=== PATIENT | male | born 2000 | race Caucasian/White ===

== ENCOUNTER 2019-08-03 06:30 | Emergency (ER) | payer OTHER ==
[~2019-08-03] VITALS: Ht 170.2 cm; Wt 50.9 kg
[2019-08-03 06:32] VITALS: BP 129/71
[2019-08-03 08:08] LABS: RAPID INFLUENZA A POSITIVE (Negative); RAPID INFLUENZA B Negative (Negative)
== END 2019-08-03 08:43 | disposition home or self-care (01) ==
LOC: ED 08:30
DX: J10.1 Influenza due to other identified influenza virus with other respiratory manifestations (principal); R21 Rash and other nonspecific skin eruption
CPT/HCPCS: 87400; 99283

== ENCOUNTER 2019-08-06 13:36 | Emergency (ER) | payer OTHER ==
[~2019-08-06] VITALS: Ht 170.2 cm; Wt 50.0 kg
--- NOTE | 2019-08-06 14:34 | NUR ---
pt ambulated to room, changed into gown, resting on gurney, NAD, call light within reach, even and unlabored respirations, denies additional needs at this time. Dr Lora at bedside performing assessment and discussing plan of care with pt. CORDELIA.
[2019-08-06] MEDS ORDERED: KETOROLAC 30 MG/1 ML IM ONE (15:00)
[2019-08-06] MEDS ORDERED: KETOROLAC 30 MG/1 ML ONE (15:03)
--- NOTE | 2019-08-06 15:09 | NUR ---
pt resting in [place] loya, denies additional needs at this time. call light within reach, WCTM.
[2019-08-06 15:23] VITALS: BP 105/66
== END 2019-08-06 15:26 | disposition home or self-care (01) ==
LOC: ED 15:25
DX: J60 Coalworker's pneumoconiosis (principal); B34.9 Viral infection, unspecified; R21 Rash and other nonspecific skin eruption; M54.2 Cervicalgia
CPT/HCPCS: 96372; 99283; J1885

== ENCOUNTER 2020-02-18 06:00 | Emergency (ER) | payer OTHER ==
[~2020-02-18] VITALS: Ht 172.7 cm; Wt 52.5 kg
--- NOTE | 2020-02-18 06:14 | NUR ---
PATIENT PUT INTO A C-COLLAR AND TAKEN BACK TO ROOM 15 IN A WHEELCHAIR.
[2020-02-18] MEDS ORDERED: NEOSPORIN OINT. PKT 1 PACKET ONE (07:03)
--- NOTE | 2020-02-18 07:03 | NUR ---
REPORT TO LEONCIO BURROUGHS.
--- NOTE | 2020-02-18 07:27 | NUR ---
SBAR RECEIVED FROM NOC RN AT PATIENT BEDSIDE FOR TRANSFER OF CARE.
[2020-02-18 07:50] VITALS: BP 99/61
--- NOTE | 2020-02-18 07:52 | NUR ---
PATIENT LYING IN GURNEY, EYES CLOSED, MOTHER AT BEDSIDE, VITAL SIGNS WITHIN NORMAL LIMITS, SIDE RAILS UP X2, CALL LIGHT WITHIN REACH.
--- NOTE | 2020-02-18 08:32 | NUR ---
Patient and mother given discharge instructions and they have confirmed that they understand the instructions, no questions. injection mold technician placed armsling, all patient belongings gathered. Patient ambulatory with steady gait to discharge desk,with mother.
== END 2020-02-18 08:34 ==
LOC: ED 08:15
DX: S16.1XXA Strain of muscle, fascia and tendon at neck level, initial encounter (principal); S53.402A Unspecified sprain of left elbow, initial encounter; V49.49XA Driver injured in collision with other motor vehicles in traffic accident, initial encounter; Y93.89 Activity, other specified; Y92.488 Other paved roadways as the place of occurrence of the external cause; Y99.8 Other external cause status
CPT/HCPCS: 70450; 72125; 99285

== ENCOUNTER 2021-01-05 12:15 | Inpatient (IN) | payer OTHER ==
[~2021-01-05] VITALS: Ht 172.7 cm; Wt 60.0 kg
--- NOTE | 2021-01-05 13:12 | NUR ---
operational trainer note: Pt to room from lobby.
[2021-01-05] MEDS ORDERED: SODIUM CHLORIDE FLUSH 10ML SYR IVF ONE (14:00)
--- NOTE | 2021-01-05 14:24 | NUR ---
PT BLOOD AND URINE TUBED TO LAB AT THIS TIME.
[2021-01-05 14:43] LABS: BASOPHILS % (AUTO) 1 % (0-1); EOSINOPHILS % (AUTO) 4 % (1-7); LYMPHOCYTES % (AUTO) 28 % (22-44); MEAN CORPUSCULAR HEMOGLOBIN 30.6 pg (27.5-34.5); MEAN CORPUSCULAR HGB CONC 34.5 g/dL (33.2-36.2); MEAN PLATELET VOLUME 9.6 fL (7.4-10.4); MONOCYTES % (AUTO) 8 % (2-9); NEUTROPHILS % (AUTO) 59 % (42-75); PLATELET COUNT 150 x10^3/uL (130-400); RED BLOOD COUNT 5.78 x10^6/uL (4.38-5.82); RED CELL DISTRIBUTION WIDTH 13.1 % (9.4-14.8)
[2021-01-05 14:49] LABS: ALBUMIN 4.5 g/dL (3.4-5.0); CALCIUM 9.4 mg/dL (8.5-10.1); CREATININE 1.01 mg/dL (0.7-1.3)
[2021-01-05 14:51] LABS: MICROSCOPIC INDICATED
[2021-01-05 14:54] LABS: ANION GAP 7 mmol/L (5-15); CHLORIDE 104 mmol/L (98-107)
[2021-01-05] MEDS ORDERED: OMNIPAQUE 350 MG/ML, 100ML BOTTLE ONE (15:24)
--- NOTE | 2021-01-05 16:30 | NUR ---
PT VSS AND UPDATED IN EMR. PT HAS CALL LIGHT WITHIN REACH AND DENIES ANY OTHER NEEDS PERTAINING TO THIS VISIT.
--- NOTE | 2021-01-05 17:58 | NUR ---
REPORT OF PT TO LEONCIO LEON. ALL QUESTIONS ANSWERED.
[2021-01-05] MEDS ORDERED: ONDANSETRON 2MG/ML, 2ML IVPush PRN (19:30)
[2021-01-05 20:18] VITALS: BP 119/72
[2021-01-05] MEDS ORDERED: DIPHENHYDRAMINE 50 MG/ML, 1ML IVPush ONE (21:00)
[2021-01-05 21:12] VITALS: BP 119/72
[2021-01-05] MEDS: SODIUM CHLORIDE 0.9% 1,000 ML IV SCH (21:30)
[2021-01-06 02:39] VITALS: BP 113/57
[2021-01-06 04:49] LABS: BASOPHILS % (AUTO) 0 % (0-1); EOSINOPHILS % (AUTO) 2 % (1-7); LYMPHOCYTES % (AUTO) 17 % (22-44); MEAN CORPUSCULAR HEMOGLOBIN 30.6 pg (27.5-34.5); MEAN CORPUSCULAR HGB CONC 34.3 g/dL (33.2-36.2); MEAN PLATELET VOLUME 9.1 fL (7.4-10.4); MONOCYTES % (AUTO) 9 % (2-9); NEUTROPHILS % (AUTO) 72 % (42-75); PLATELET COUNT 153 x10^3/uL (130-400); RED BLOOD COUNT 5.44 x10^6/uL (4.38-5.82); RED CELL DISTRIBUTION WIDTH 12.8 % (9.4-14.8)
[2021-01-06] MEDS: SODIUM CHLORIDE 0.9% 1,000 ML IV SCH ×2 (04:55→15:30)
[2021-01-06] MEDS: morphine SULFATE 10 MG/ML, 1ML IVPush PRN (04:55)
[2021-01-06 04:59] LABS: ANION GAP 5 mmol/L (5-15); CALCIUM 8.8 mg/dL (8.5-10.1); CHLORIDE 110 mmol/L (98-107); CREATININE 0.93 mg/dL (0.7-1.3)
[2021-01-06 07:00] VITALS: BP 105/51
[2021-01-06 13:10] VITALS: BP 112/70
[2021-01-06] MEDS ORDERED: OMNIPAQUE 350 MG/ML, 100ML BOTTLE ONE (19:00)
[2021-01-06 20:22] VITALS: BP 108/63
[2021-01-06] MEDS ORDERED: LORazepam 2 MG/ML, 1ML ONE (22:37)
[2021-01-06] MEDS ORDERED: LORazepam 2 MG/ML, 1ML IVPush ONE (23:00)
[2021-01-07] MEDS: SODIUM CHLORIDE 0.9% 1,000 ML IV SCH ×2 (02:58→17:47)
[2021-01-07 04:46] LABS: BASOPHILS % (AUTO) 0 % (0-1); EOSINOPHILS % (AUTO) 3 % (1-7); LYMPHOCYTES % (AUTO) 26 % (22-44); MEAN CORPUSCULAR HEMOGLOBIN 30.6 pg (27.5-34.5); MEAN CORPUSCULAR HGB CONC 34.7 g/dL (33.2-36.2); MEAN PLATELET VOLUME 8.6 fL (7.4-10.4); MONOCYTES % (AUTO) 10 % (2-9); NEUTROPHILS % (AUTO) 61 % (42-75); PLATELET COUNT 149 x10^3/uL (130-400); RED BLOOD COUNT 5.38 x10^6/uL (4.38-5.82); RED CELL DISTRIBUTION WIDTH 12.7 % (9.4-14.8)
[2021-01-07 05:00] LABS: ANION GAP 4 mmol/L (5-15); CALCIUM 8.4 mg/dL (8.5-10.1); CHLORIDE 106 mmol/L (98-107); CREATININE 0.91 mg/dL (0.7-1.3)
[2021-01-07 08:59] VITALS: BP 123/69
[2021-01-07] MEDS ORDERED: MIDAZOLAM 1 MG/ML, 2ML ONE (11:25)
[2021-01-07] MEDS ORDERED: PROPOFOL 50 ML ONE (11:25)
[2021-01-07] MEDS ORDERED: FENTANYL PF 250 MCG/5ML ONE ×2 (11:26→15:12)
[2021-01-07] MEDS ORDERED: hydrALAzine 20 MG/ML, 1ML IV PRN (14:30)
[2021-01-07] MEDS ORDERED: OXYcodone 5 MG/5 ML ORAL.SOL UDC PO PRN (14:30)
[2021-01-07] MEDS ORDERED: LORazepam 2 MG/ML, 1ML IVPush PRN ×2 (14:30→18:30)
[2021-01-07] MEDS ORDERED: LABETALOL 5MG/ML, 20ML IV PRN (14:30)
[2021-01-07] MEDS ORDERED: ONDANSETRON 2MG/ML, 2ML IVPush PRN (14:30)
[2021-01-07] MEDS ORDERED: HYDROmorphone 1 MG/ML, 1ML INJ IVPush PRN (14:30)
[2021-01-07] MEDS ORDERED: MEPERIDINE/PF 25MG/0.5ML IVPush PRN (14:30)
[2021-01-07] MEDS ORDERED: METHOCARBAMOL 1,000 MG in DEXTROSE 5% 100 ML IV PRN (14:30)
[2021-01-07] MEDS ORDERED: ACETAMINOPHEN 325 MG TABLET PO PRN (14:30)
[2021-01-07] MEDS ORDERED: PROMETHAZINE 25 MG/ML, 1ML IVPush PRN (14:30)
[2021-01-07] MEDS ORDERED: FENTANYL PF 100 MCG/2ML ONE (16:03)
[2021-01-07] MEDS ORDERED: OXYcodone 5 MG/5 ML ORAL.SOL UDC ONE (16:04)
[2021-01-07] MEDS: FENTANYL PF 100 MCG/2ML IV PRN ×3 (16:06→16:32)
[2021-01-07] MEDS ORDERED: MEPERIDINE/PF 25MG/ML,1ML ONE (16:15)
[2021-01-07] MEDS: morphine SULFATE 10 MG/ML, 1ML IVPush PRN (17:42)
[2021-01-07] MEDS ORDERED: KETOROLAC 30 MG/1 ML IVPush ONE (18:30)
[2021-01-07 20:20] VITALS: BP 119/72
[2021-01-08] MEDS ORDERED: LORazepam 2 MG/ML, 1ML IVPush ONE
[2021-01-08] MEDS: SODIUM CHLORIDE 0.9% 1,000 ML IV SCH
[2021-01-08 00:02] VITALS: BP 110/56
[2021-01-08 04:26] VITALS: BP 95/61
[2021-01-08 07:46] VITALS: BP 101/55
[2021-01-08 13:52] VITALS: BP 109/72
[2021-01-08] MEDS ORDERED: DOCUSATE 100 MG CAPSULE ONE (14:32)
[2021-01-08] MEDS ORDERED: DOCU-131 PO (16:37)
[2021-01-08] MEDS ORDERED: DOCUSATE 100 MG CAPSULE PO SCH (21:00)
== END 2021-01-08 17:47 | disposition home or self-care (01) | DRG 358 ==
LOC: ED 14:19 → EDIP 16:09 → 4NE 18:15
PROVIDERS: ADMIT Hospitalist; ATTEND Hospitalist
PROC: 0DJW4ZZ Inspection of Peritoneum, Percutaneous Endoscopic Approach (ICD-10-PCS; principal; 2021-01-07 13:45)
DX: K56.600 Partial intestinal obstruction, unspecified as to cause (principal); K56.1 Intussusception; F12.10 Cannabis abuse, uncomplicated; Z20.822 Contact with and (suspected) exposure to COVID-19
CPT/HCPCS: 36415; 74177; 80048; 81001; 82040; 85025; 87635; 96374; G0378; J1885; J2175; J2250; J2704; J3010; Q9967; J1200; J2060; J2270; J7030